=== PATIENT | male | born 1990 | race Two or more races ===

== ENCOUNTER 2017-12-31 21:38 | Emergency (ER) | payer MEDICAID, OTHER ==
[~2017-12-31] VITALS: Ht 172.7 cm; Wt 61.2 kg
[~2017-12-31 21:38] MED LIST: AMOXICILLIN500 MG ORAL; HYDROCODON-ACE1 EA15 ORAL; NORCO 5-325 TA1 EACH ORAL
[2017-12-31 21:50] VITALS: BP 138/90
[2017-12-31 22:53] VITALS: BP 127/88
[2017-12-31 23:10] VITALS: BP 127/88
--- NOTE | 2017-12-31 23:39 | Emergency Room Report ---
History of Present Illness General Chief Complaint: Laceration Source: Patient Present Illness HPI 27-year-old male p/w laceration. 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 no other complaints. Tdap is up to date Allergies: Coded Allergies: No Known Allergies (Unverified , 08/04/14) Patient History Past Medical History: see triage record Past Surgical History: none Pertinent Family History: none Reviewed Nursing Documentation: PMH: Agreed; PSxH: Agreed Review of Systems All Other Systems: negative except mentioned in HPI Physical Exam Vital Signs Date Time Temp Pulse Resp B/P (MAP) Pulse Ox O2 Delivery O2 Flow Rate FiO2 12/31/17 21:43 98.1 88 18 141/101 98 Room Air 98.1 Sp02 EP Interpretation: reviewed, normal General Appearance: normal inspection, well appearing, no apparent distress, alert, GCS 15, non-toxic Head: normocephalic, atraumatic Eyes: bilateral eye normal inspection, bilateral eye PERRL, bilateral eye EOMI ENT: normal ENT inspection Neck: normal inspection Respiratory: normal inspection, speaking full sentences Cardiovascular #1: normal inspection Cardiovascular #2: 2+ radial (R), 2+ radial (L) Gastrointestinal: normal inspection Genitourinary: no CVA tenderness Musculoskeletal: other - L thumb laceraion at pip, FROM thumb Neurologic: normal inspection, alert, oriented x3, responsive, motor strength/ tone normal, sensory intact, normal gait, speech normal Psychiatric: normal inspection, judgement/insight normal, memory normal Skin: normal inspection, normal color, no rash, warm/dry, well hydrated, normal turgor Procedures Laceration/Wound Repair Laceration/Wound Repair : Consent: Verbal Wound Location: upper extremity Wound's Depth, Shape: superficial Wound Length (cm): 1 Wound Explored: clean Irrigated w/ Saline (ccs): 1000 Anesthesia: 1% Lidocaine Volume Anesthetic (ccs): 2 Wound Repaired With: sutures Suture Size/Type: 3:0, nylon Patient Tolerated: Well Complications: None Medical Decision Making Diagnostic Impression: Primary Impression: Laceration ER Course 27-year-old male p/w laceration DDX: Laceration, no signs of infectio ER course: Laceration repaired, bacitracin with sterile dressing applied. Disposition: Patient will be discharged home. Strict return precautions discussed with patient such as fever, chills, increasing bleeding to site, purulent drainage, rapid swelling or redness to area. Patient verbalizes understanding. Patient sis informed of inevitable scar that will result from laceration despite repair. Pt instructed to avoid sun exposure to decrease the appearance of scar. Patient instructed to return to ED or their primary care doctor in 10-14 days for removal of sutures. Patient agrees with plan. Please note that this Emergency Department Report was dictated using [employer] blaster technology software, occasionally this can lead to erroneous entry secondary to interpretation by the dictation equipment Last Vital Signs Date Time Temp Pulse Resp B/P (MAP) Pulse Ox O2 Delivery O2 Flow Rate FiO2 12/31/17 22:53 98.0 74 18 127/88 98 Room Air 98.0 Disposition: HOME, SELF-CARE Condition: Improved Referrals: NON PHYSICIAN (PCP) Patient Instructions: Laceration Care, Adult Additional Instructions: Please return to the emergency room in 10-14 days for suture removal Fredy Holcomb M.D. December 31, 2017 23:39
== END 2017-12-31 23:30 | disposition home or self-care (01) ==
LOC: EMR 23:21
DX: S61.012A Laceration without foreign body of left thumb without damage to nail, initial encounter (principal); W26.9XXA Contact with unspecified sharp object(s), initial encounter; Y92.9 Unspecified place or not applicable
CPT/HCPCS: 12001; 99283; Z7502

== ENCOUNTER 2018-03-12 10:01 | Emergency (ER) | payer MEDICAID ==
[~2018-03-12] VITALS: Ht 172.7 cm; Wt 59.0 kg
[2018-03-12 10:10] VITALS: BP 141/93
[2018-03-12] MEDS ORDERED: NKM (10:10)
[2018-03-12] MEDS ORDERED: Lidocaine 1% MPF 10mg/ml 5ml INJ ONE (10:30)
--- NOTE | 2018-03-12 10:31 | Emergency Room Report ---
History of Present Illness General Chief Complaint: Male Urogenital Problems Source: Patient Present Illness [facility] Mr. Adams is a healthy 27 yo male without significant medical history who presents with hematuria. 2 weeks ago he notice blood after ejaculation mixed with semen immediately after intercourse. One week, the blood recurred during ejaculation after masturbation. Since that time no hematuria. Today he noticed blood while urinating. No discrete pain. He has minimal right groin pain, achy pain feels like the area is bloated. The right groin pain began gradually 2-3 days ago. No change with movement. Has had STI previously chlamydia. no penile discharge or genital pain. Allergies: Coded Allergies: No Known Allergies (Unverified , 08/04/14) Patient History Past Medical History: none Past Surgical History: other - finger surgery Nursing Documentation-[facility] Past Medical History: No Stated History Review of Systems Constitutional: Reports: no symptoms; Denies: chills, fever Cardiovascular: Denies: chest pain Gastrointestinal: Denies: nausea, vomiting All Other Systems: negative except mentioned in HPI Physical Exam Vital Signs Date Time Temp Pulse Resp B/P (MAP) Pulse Ox O2 Delivery O2 Flow Rate FiO2 03/12/18 10:03 98.1 100 18 141/93 97 Room Air 98.1 Sp02 EP Interpretation: reviewed, normal General Appearance: no apparent distress - steady normal heavenly, alert, GCS 15, non-toxic Head: normocephalic, atraumatic Eyes: bilateral eye normal inspection ENT: hearing grossly normal, normal pharynx, no angioedema, normal voice Neck: full range of motion, supple/symm/no masses Respiratory: chest non-tender, lungs clear, normal breath sounds, speaking full sentences Cardiovascular #1: regular rate, rhythm, no edema Cardiovascular #2: 2+ carotid (R), 2+ carotid (L), 2+ radial (R), 2+ radial (L) , 2+ dorsalis pedis (R), 2+ dorsalis pedis (L) Gastrointestinal: normal bowel sounds, non tender, soft, non-distended, no guarding, no rebound Rectal: deferred Genitourinary: deferred Musculoskeletal: gait/station normal, normal range of motion Neurologic: alert, oriented x3, responsive, motor strength/tone normal, sensory intact, speech normal Psychiatric: judgement/insight normal, memory normal, mood/affect normal Skin: normal color, no rash, warm/dry, well hydrated Medical Decision Making ER Course Mr. Adams presents with painless hematuria and blood from ejaculate for 2 weeks. Right groin pain does not appear to be associated. I suspect right groin strain due to strenuous work. DDX: urethritis, urethral injury, prostatis, cystitis plan: ceftriaxone provided in ED, doxycycline for 10 days given referral to free clinics in area, recommended f/u in 2 weeks after abx completed Last Vital Signs Date Time Temp Pulse Resp B/P (MAP) Pulse Ox O2 Delivery O2 Flow Rate FiO2 03/12/18 10:10 98.1 79 18 141/93 97 Room Air 98.1 Referrals: NON PHYSICIAN (PCP) WILI FARIAS Mar 12, 2018 10:31
[2018-03-12 10:50] LABS: APPEARANCE,URINE TURBID; BILIRUBIN, URINE NEGATIVE (NEGATIVE); COLOR,URINE PALE YELLOW; GLUCOSE, URINE (UA) 1+ (NEGATIVE); KETONES,URINE NEGATIVE (NEGATIVE); LEUKOCYTE ESTERASE ,URINE 1+ (NEGATIVE); NITRITE,URINE NEGATIVE (NEGATIVE); PH,URINE 6.5 (4.5-8.0); PROTEIN,URINE 3+ (NEGATIVE); UROBILINOGEN,URINE NORMAL MG/DL (0.0-1.0)
[2018-03-12] MEDS ORDERED: DOXYCYCLINE HY100 M7 PO (11:50)
[2018-03-12 12:00] VITALS: BP 143/90
[2018-03-12 12:12] VITALS: BP 143/90
== END 2018-03-12 12:12 | disposition home or self-care (01) ==
LOC: EMR 10:19
DX: R31.9 Hematuria, unspecified (principal); N53.19 Other ejaculatory dysfunction
CPT/HCPCS: 81001; 96372; 99283; J0696

== ENCOUNTER 2018-04-17 20:19 | Emergency (ER) | payer MEDICAID ==
[~2018-04-17] VITALS: Ht 172.7 cm; Wt 59.0 kg
[~2018-04-17 20:19] MED LIST changes: +DOXYCYCLINE HY100 M7 PO; +NKM
--- NOTE | 2018-04-17 20:41 | Emergency Room Report ---
History of Present Illness General Chief Complaint: Abdominal Pain Source: Patient Present Illness HPI Is a 27-year-old male with no past medical history. He does have a history of alcohol and methamphetamine abuse. He presents with chief complaint of left lower quadrant pain is been ongoing for last 2 days. Onset after drinking. No fever chills but no nausea no vomiting. Pain is sharp in nature. Worse with palpation. No hematuria. Denies any discharge. Denies any testicular pain. Allergies: Coded Allergies: No Known Allergies (Unverified , 08/04/14) Patient History Past Medical History: see triage record, old chart reviewed Past Surgical History: none Pertinent Family History: none Social History: Reports: smoking, alcohol use, drug use Immunizations: other Reviewed Nursing Documentation: PMH: Agreed; PSxH: Agreed Nursing Documentation-PMH Past Medical History: No Stated History Review of Systems Eye: Denies: eye pain, blurred vision ENT: Denies: ear pain, nose congestion, throat swelling Respiratory: Denies: cough, shortness of breath Cardiovascular: Denies: chest pain, palpitations Gastrointestinal: Reports: abdominal pain; Denies: diarrhea, nausea, vomiting Musculoskeletal: Denies: back pain, joint pain Skin: Denies: rash Neurological: Denies: headache, numbness Endocrine: Denies: increased thirst, increased urine Hematologic/Lymphatic: Denies: easy bruising All Other Systems: negative except mentioned in HPI Physical Exam Vital Signs Date Time Temp Pulse Resp B/P (MAP) Pulse Ox O2 Delivery O2 Flow Rate FiO2 04/17/18 20:27 98.2 99 16 140/97 100 Room Air 98.2 Sp02 EP Interpretation: reviewed, normal General Appearance: well appearing, no apparent distress, alert Head: normocephalic, atraumatic Eyes: bilateral eye PERRL, bilateral eye EOMI ENT: hearing grossly normal, normal pharynx Neck: full range of motion, supple, no meningismus Respiratory: chest non-tender, lungs clear, normal breath sounds Cardiovascular #1: regular rate, rhythm, no murmur Gastrointestinal: normal bowel sounds, no mass, no organomegaly, no bruit, non- distended, tenderness - Left lower quadrant Musculoskeletal: back normal, gait/station normal, normal range of motion Psychiatric: mood/affect normal Skin: warm/dry Medical Decision Making Diagnostic Impression: Primary Impression: Abdominal pain Qualified Codes: R10.32 - Left lower quadrant pain Additional Impression: Methamphetamine abuse ER Course Patient presents with abdominal pain. No acute abdomen. No infection. No hematuria. We'll discharge home. CT/MRI/US Diagnostic Results CT/MRI/US Diagnostic Results : Imaging Test Ordered: CT abdomen and pelvis Impression negative per radiologist Last Vital Signs Date Time Temp Pulse Resp B/P (MAP) Pulse Ox O2 Delivery O2 Flow Rate FiO2 04/17/18 20:27 98.2 99 16 140/97 100 Room Air 98.2 Status: improved Disposition: HOME, SELF-CARE Condition: Stable Scripts Ibuprofen* (MOTRIN*) 600 Mg Tablet 600 MG ORAL THREE TIMES A DAY, #30 TAB 0 Refills Prov: ADIA PALM M.D. 04/17/18 Patient Instructions: Abdominal Pain, Adult Additional Instructions: Stop using drugs and alcohol. Follow-up with your doctor in 7 days. Return if worse. ADIA PALM M.D. Apr 17, 2018 20:41
[2018-04-17 21:15] LABS: APPEARANCE,URINE CLEAR; BILIRUBIN, URINE NEGATIVE (NEGATIVE); COLOR,URINE AMBER; GLUCOSE, URINE (UA) NEGATIVE (NEGATIVE); KETONES,URINE 2+ (NEGATIVE); LEUKOCYTE ESTERASE ,URINE 1+ (NEGATIVE); NITRITE,URINE NEGATIVE (NEGATIVE); PH,URINE 6.5 (4.5-8.0); PROTEIN,URINE 1+ (NEGATIVE); UROBILINOGEN,URINE 1 MG/DL (0.0-1.0)
--- NOTE | 2018-04-17 22:10 | Diagnostic Imaging Report ---
EXAM: CT Abdomen and Pelvis Without Intravenous Contrast CLINICAL HISTORY: ABD PAIN TECHNIQUE: Axial computed tomography images of the abdomen and pelvis without intravenous contrast. CTDI is 8.26 + 0.15 mGy and DLP is 395 mGy-cm. One or more of the following dose reduction techniques were used: automated exposure control, adjustment of the mA and/or kV according to patient size, use of iterative reconstruction technique. COMPARISON: No relevant prior studies available. FINDINGS: Lung bases: Unremarkable. ABDOMEN: Liver: Unremarkable Gallbladder and bile ducts: No calcified stones. No ductal dilation. Pancreas: Unremarkable. Spleen: Unremarkable. Adrenals: Unremarkable. Kidneys and ureters: No renal calculi or obstructive changes. Stomach and bowel: No mouna mural thickening. Nonobstructive bowel gas pattern. PELVIS: Appendix: Small visualized segments of the appendix are normal caliber. Bladder: Unremarkable. Reproductive: Unremarkable. ABDOMEN and PELVIS: Intraperitoneal space: Unremarkable. Bones/joints: No acute fracture. Soft tissues: Unremarkable. Vasculature: Unremarkable. No abdominal aortic aneurysm. Lymph nodes: No enlarged lymph nodes. IMPRESSION: No acute findings.
[2018-04-17] MEDS ORDERED: IBUPROFEN600 MG ORAL (22:17)
[2018-04-17 22:22] VITALS: BP 132/79
== END 2018-04-17 22:22 | disposition home or self-care (01) ==
LOC: EMR 20:43
DX: R10.32 Left lower quadrant pain (principal); F15.10 Other stimulant abuse, uncomplicated
CPT/HCPCS: 74176; 81003; 99284